=== PATIENT | female | born 1980 | race Caucasian/White ===

== ENCOUNTER 2019-02-18 16:38 | Observation (INO) | payer OTHER ==
[~2019-02-18] VITALS: Ht 177.8 cm; Wt 73.5 kg
[2019-02-18 16:41] VITALS: BP 137/98
--- NOTE | 2019-02-18 16:49 | NUR ---
brought in by ems from near by 08/15 IN [place] witnessed seizure, unk duration small hematoma occipital region with abrasion to knee. PAIN 06/14 hx--seizure, C SECTION, AOOENDECTOMY, TOSILLECTOMY rx--non compliant
--- NOTE | 2019-02-18 16:49 | NUR ---
brought in by ems from [facility] by 08/15 IN [place] witnessed seizure, unk duration small hematoma occipital region with abrasion to knee---- hx--seizure, C SECTION, AOOENDECTOMY, TOSILLECTOMY rx--non compliant Addendum: 02/18/19 at 1652 by [email or web address] BLOOD SUGAR 138 ON SCENE.
--- NOTE | 2019-02-18 17:02 | NUR ---
Patient being evaluated by DR MORALES at bedside.
--- NOTE | 2019-02-18 17:06 | NUR ---
PT CAN'T PROVIDE URINE AT THIS TIME.
[2019-02-18] MEDS ORDERED: levETIRAcetam 500 MG TAB PO ONE (17:10)
[2019-02-18] MEDS ORDERED: LORazepam 2 MG/ML VIAL IVP ONE (17:10)
--- NOTE | 2019-02-18 17:33 | NUR ---
EKG AT BEDSIDE.
--- NOTE | 2019-02-18 17:34 | NUR ---
PT REFUSED IV CATH & MED LORAZEPAM IV AT THIS TIME.
--- NOTE | 2019-02-18 18:32 | NUR ---
i called pt's mother and in turn received father's number, as per pt requested for him to come to ER.
[2019-02-18 18:39] LABS: BASOPHILS % (AUTO) 0.3 % (0.0-2.0); EOSINOPHILS # (AUTO) 0.1 K/uL (0-0.4); EOSINOPHILS % (AUTO) 0.6 % (0.0-4.0); HEMATOCRIT 39.5 % (36-48); HEMOGLOBIN 12.4 g/dL (12.0-16.0); LYMPHOCYTES # (AUTO) 1.8 K/uL (2.5-16.5); LYMPHOCYTES % (AUTO) 22.9 % (20.5-51.1); MEAN CORPUSCULAR HEMOGLOBIN 25 pg (27-31); MEAN CORPUSCULAR HGB CONC 31 g/dL (33-37); MONOCYTES # (AUTO) 0.5 K/uL (0.8-1.0); MONOCYTES % (AUTO) 5.9 % (1.7-9.3); NEUTROPHILS # (AUTO) 5.6 K/uL (1.8-7.7); NEUTROPHILS % (AUTO) 70.3 % (42.2-75.2); PLATELET COUNT (AUTO) 260 K/uL (140-450); RED BLOOD CELL COUNT(AUTO) 4.94 MIL/uL (4.20-5.40); RED CELL DISTRIBUTION WIDTH 20.9 % (11.6-13.7)
--- NOTE | 2019-02-18 19:07 | NUR ---
Pt report given to MELISSA RICHARDS. Transfer of care at this time.
--- NOTE | 2019-02-18 19:07 | NUR ---
RECEIVED REPORT FROM SUSIE COBIAN. WILL CONT CARE AT THIS TIME.
[2019-02-18 19:16] LABS: ACETAMINOPHEN 1.8 ug/ml (10-30); ALBUMIN 4.4 g/dL (3.4-5.0); ANION GAP 17.7 (8-16); ASPARTATE AMINOTRANSFERASE 11 U/L (15-37); CARBON DIOXIDE 25.1 mmol/L (21-32); CHLORIDE 105 mmol/L (98-107); GFR ARICAN-AMERICAN 81 mL/min (>90); GLUCOSE 93 mg/dL (74-106); MAGNESIUM 2.2 mg/dL (1.8-2.4); POTASSIUM 3.8 mmol/L (3.5-5.1); SALICYLATE 16.1 mg/dL (2.8-20.0); SODIUM SERUM 144 mmol/L (136-145); TOTAL BILIRUBIN 0.3 mg/dL (0.0-1.0); UREA NITROGEN, BLOOD 9 mg/dL (7-18)
[2019-02-18 20:03] LABS: APPEARANCE,URINE CLEAR (CLEAR); BILIRUBIN,URINE NEGATIVE (NEGATIVE); BLOOD, URINE TRACE-L (NEGATIVE); COLOR,URINE YELLOW (YELLOW); LEUKOCYTE ESTERASE ,URINE NEGATIVE (NEGATIVE); NITRITE, URINE NEGATIVE (NEGATIVE); UGLUCOSE NEGATIVE (NEGATIVE)
[2019-02-18 20:25] LABS: BARBITURATE, URINE NEG. ng/ml (NEG <=200); BENZODIAZEPINE, URINE NEG. ng/mL (NEG <=200); CANNABINOID, URINE NEG. ng/mL (NEG <=50); COCAINE, URINE NEG. ng/mL (NEG <=300); OPIATE, URINE NEG. ng/mL (NEG <=2000); PHENCYCLIDINE SCREEN,URINE NEG. ng/mL (NEG <=25)
[2019-02-18] MEDS ORDERED: ZOLP10TA1 PO (23:27)
--- NOTE | 2019-02-18 23:30 | NUR ---
TRY TO START AN IV ON PT BUT PT REFUSED.
[2019-02-18] MEDS ORDERED: GABA100C PO (23:31)
[2019-02-18] MEDS ORDERED: NAPR220C12 PO (23:31)
[2019-02-18] MEDS ORDERED: BEN50 PO (23:32)
--- NOTE | 2019-02-18 23:33 | NUR ---
DAD CONTACT INFO: KALINA [phone].
[2019-02-19] VITALS: BP 121/80
--- NOTE | 2019-02-19 | NUR ---
RECIEVED PT FROM ER / ALESHIA , AAOX4 , NID - O2 SAT WNL , IV SITE INTACT AND PATENT . NPO , AMBULATES TO BED - STEADY GAIT . ON S2 PRECAUTION PROTOCOL . PLAN OF CARE DISCUSSED AND VERBALIZED UNDERSTANDING - CALL LIGHT WITHIN REACH.ADMISSION ASSESSMENT DONE . MRSA SPECIMEN COLLECTED AND SENT TO LAB. ON SAFETY PRECAUTION PROTOCOL , S/P FELL, HAD S2 PRIOR TO ADM , WITH HEMATOMA ON THE SCALP - NO C/O PAIN AT THIS TIME. ON NEEDLE GRINDER - SR.WILL CONT. TO MONITOR. Addendum: 02/19/19 at 0759 by Berenice Negrete RN NO IV SITE - ACCORDING TO ER NOD PT REFUSED FOR IV NEEDLE INSERTION HE SAID DOCTOR. AWARE ABOUT IT.
--- NOTE | 2019-02-19 | NUR ---
Patient will be admitted to care of DR. MA. Admited to TELE. Will go to room 125B. Belongings list completed. Report to SUSIE ELAINE.
--- NOTE | 2019-02-19 00:30 | NUR ---
PT. C/O DRY MOUTH AND THIRSTY , REQUESTING EVEN SMALL AMOUNT OF WATER - NPO - WILL REFER TO DR. WEBB ( MATERNAL CHILD NURSE DOCTOR) WILL CONT. TO MONITOR . CALL LIGHT WITHIN REACH. ON S2 PRECAUTION.
[2019-02-19] MEDS ORDERED: ACETAMINOPHEN 325 MG TAB PO PRN (01:15)
[2019-02-19] MEDS ORDERED: LORazepam 2 MG/ML VIAL IVP PRN (01:15)
[2019-02-19] MEDS ORDERED: ONDANSETRON 4 MG/2 ML VIAL IVP PRN (01:15)
--- NOTE | 2019-02-19 01:30 | NUR ---
DR. WEBB CALL BACK . HE SAID PT MAY HAVE SIP OR SMALL AMOUT OF WATER NOW ONLY WATER THEN BACK TO NPO TILL FURTHER ORDER.
[2019-02-19 04:00] VITALS: BP 120/82
--- NOTE | 2019-02-19 04:00 | NUR ---
PT. REFUSED IV INSERTION AND IV KEPPRA - PAGED DR. WEBB .- WILL WAIT FOR CALL BACK .
[2019-02-19] MEDS ORDERED: levETIRAcetam 100 MG/ML VIAL IV ONE (04:03)
[2019-02-19] MEDS ORDERED: levETIRAcetam 500 MG in NACL 0.9% 100 ML IV SCH (05:00)
--- NOTE | 2019-02-19 06:00 | NUR ---
MADE ROUNDS . NO S/SXS OF ACUTE DISTRESS .WILL CONT. TO MONITOR.
--- NOTE | 2019-02-19 07:30 | NUR ---
SHIFT REPORT RECEIVED FROM ENERGY CONSERVATION ENGINEER NURSE. PT IS IN BED IN STABLE CONDITION. NO SIGNS OF DISTRESS. PT HAS NO IV. PT REFUSED ALL IV MEDS. CALL LIGHT IN REACH.
--- NOTE | 2019-02-19 07:30 | NUR ---
ENDORSED TO AM SHIFT FOR CONT. OF CARE . PT IS ON STABLE CONDITION. Addendum: 02/19/19 at 0857 by Berenice Negrete RN RE WILLIAM WEBB ABOUT IV REFUSAL AND IV MEDICATION REFUSAL - ENDORSED .
--- NOTE | 2019-02-19 07:45 | NUR ---
DR BEST CALLED BACK TO CONFIRM CHANGE OF KEPPRA 500 MG FROM IV TO PO BID BECAUSE PT REFUSED IV MEDICATIONS. Addendum: 02/19/19 at 1019 by Conner Hale RN DR WEBB
[2019-02-19 08:00] VITALS: BP 122/77
--- NOTE | 2019-02-19 08:27 | NUR ---
PATIENT HAS BEEN SCREENED AND CATEGORIZED LOW NUTRITION RISK. PATIENT WILL BE SEEN WITHIN 7 DAYS OF ADMISSION. 02/25/[address]
[2019-02-19] MEDS ORDERED: levETIRAcetam 500 MG TAB PO SCH (09:00)
--- NOTE | 2019-02-19 10:19 | NUR ---
PT IS RESTING IN BED. PT IS STABLE. NO DISTRESS NOTED. CALL LIGHT IN REACH.
[2019-02-19 12:00] VITALS: BP 130/77
[2019-02-19] MEDS ORDERED: KEP500 PO (12:09)
--- NOTE | 2019-02-19 15:00 | NUR ---
PT WAS DISCHARGED TODAY. PT'S DISCHARGE INSTRUCTIONS GIVEN TO PATIENT. PT'S PRESCRIPTION GIVEN TO PATIENT. PT WAS ALERT AND IN STABLE CONDITION AT DISCHARGE. NO IV LINE ON PATIENT. SKIN INTACT. PT WALKED WITH A STEADY GAIT AT DISCHARGE. PT'S BELONGINGS WITH PATIENT. PT WILL FOLLOW UP PCP.
--- NOTE | 2019-02-24 15:06 | NUR ---
PCP Appointment: JAYASHREE contacted [facility] [phone]. JAYASHREE spoke with Heather who stated that patient already had an appointment at 1415 on 02/26/2019 @ [address] [place] [address]. No further needs identified.
== END 2019-02-19 15:10 | disposition home or self-care (01) ==
LOC: MED 16:38 → MMU 23:20
PROVIDERS: ADMIT Internal Medicine Pulmonary Disease; ATTEND Internal Medicine Pulmonary Disease
DX: G40.909 Epilepsy, unspecified, not intractable, without status epilepticus (principal); F17.200 Nicotine dependence, unspecified, uncomplicated; Z79.899 Other long term (current) drug therapy
CPT/HCPCS: 36415; 70450; 71045; 72125; 80053; 80305; 81003; 81025; 82550; 83605; 83735; 84484; 85025; 87081; 93005; 99285; G0378; G0480; G0482; J2060; Q0092; J1953

== ENCOUNTER 2020-05-24 12:20 | Emergency (ER) | payer OTHER ==
[~2020-05-24] VITALS: Ht 177.8 cm; Wt 74.8 kg
[~2020-05-24 12:20] MED LIST: BEN50 PO; GABA100C PO; KEP500 PO; NAPR220C12 PO; ZOLP10TA1 PO
== END 2020-05-24 14:57 | disposition left against medical advice (07) ==
LOC: MED 12:20
DX: R42 Dizziness and giddiness (principal); Z53.21 Procedure and treatment not carried out due to patient leaving prior to being seen by health care provider